=== PATIENT | female | born 1940 | race Caucasian/White ===

== ENCOUNTER → 2018-05-15 | Outpatient (CLI) | payer MEDICARE, BC ==
[~2018-05-15] MED LIST: ASPI-496 PO; ATOR20TA37 PO; BIOT5CAP3 PO; CALC-451 PO; CALC500T93 PO; CHOL200024 PO; DILT120T3 PO; FISH1CAP PO; NAPR220C2 PO
[2018-05-15 10:32] LABS: BASOPHILS # (AUTO) 0.03 x10^3/uL (0-0.1); BASOPHILS % (AUTO) 0 % (0-1); EOSINOPHILS # (AUTO) 0.22 x10^3/uL (0-0.4); EOSINOPHILS % (AUTO) 3 % (1-7); LYMPHOCYTES # (AUTO) 1.85 x10^3/uL (1-3.4); LYMPHOCYTES % (AUTO) 23 % (22-44); MD NO; MEAN CORPUSCULAR HEMOGLOBIN 32.3 pg (27.0-34.8); MEAN CORPUSCULAR HGB CONC 33.7 g/dL (32.4-35.8); MEAN CORPUSCULAR VOLUME 95.6 fL (80-100); MEAN PLATELET VOLUME 9.4 fL (7.4-10.4); MONOCYTES # (AUTO) 0.37 x10^3/uL (0.2-0.8); MONOCYTES % (AUTO) 5 % (2-9); NEUTROPHILS # (AUTO) 5.73 x10^3/uL (1.8-6.8); NEUTROPHILS % (AUTO) 70 % (42-75); PLATELET COUNT 255 x10^3/uL (130-400); RED BLOOD COUNT 4.17 x10^6/uL (3.82-5.3); RED CELL DISTRIBUTION WIDTH 13.2 % (9.6-15.2)
[2018-05-15 10:38] LABS: ANION GAP 4 mmol/L (5-15); CALCIUM 9.1 mg/dL (8.5-10.1); CHLORIDE 108 mmol/L (98-107); CREATININE 0.96 mg/dL (0.55-1.02)
== END | disposition home or self-care (01) ==
LOC: STAR 09:09
PROVIDERS: ATTEND Obstetrics & Gynecology Female Pelvic Medicine and Reconstructive Surgery
DX: Z01.818 Encounter for other preprocedural examination (principal); N81.4 Uterovaginal prolapse, unspecified; N39.3 Stress incontinence (female) (male); Z88.5 Allergy status to narcotic agent; Z88.8 Allergy status to other drugs, medicaments and biological substances; Z88.1 Allergy status to other antibiotic agents
CPT/HCPCS: 36415; 71046; 80048; 85025; 93005

== ENCOUNTER 2018-06-11 10:27 | Observation (INO) | payer MEDICARE, BC ==
[~2018-06-11] VITALS: Ht 162.6 cm; Wt 82.0 kg
[2018-06-11] MEDS ORDERED: LACTATED RINGERS 1,000 ML IV SCH (10:53)
[2018-06-11] MEDS ORDERED: SCOPOLAMINE PATCH, 1.5MG PATCH.TD72 TD ONE (11:00)
[2018-06-11] MEDS ORDERED: ACETAMINOPHEN 500 MG TABLET PO ONE (11:00)
[2018-06-11] MEDS ORDERED: GABAPENTIN 300 MG CAPSULE PO ONE (11:00)
[2018-06-11 11:24] VITALS: BP 152/84
[2018-06-11] MEDS ORDERED: GENTAMICIN 80 MG/2 ML ONE (11:30)
[2018-06-11] MEDS ORDERED: BUPIVACAINE/PF 0.25% ONE (11:58)
[2018-06-11] MEDS ORDERED: VANCOMYCIN 500 MG ONE (11:58)
[2018-06-11] MEDS ORDERED: THROMBIN 20,000 UNIT VIAL TP ONE ×2 (11:58→13:21)
[2018-06-11] MEDS ORDERED: ESTROGENS CONJUGATED VAG CRM 0.625MG/1G, 30GM ONE (11:58)
[2018-06-11] MEDS ORDERED: EPINEPHRINE 1 MG/ML, 1ML ONE (11:58)
[2018-06-11] MEDS ORDERED: hydrALAzine 20 MG/ML, 1ML IV PRN (12:00)
[2018-06-11] MEDS ORDERED: MEPERIDINE/PF 25MG/0.5ML IVPush PRN (12:00)
[2018-06-11] MEDS ORDERED: LABETALOL 5MG/ML, 20ML IV PRN (12:00)
[2018-06-11] MEDS ORDERED: PROCHLORPERAZINE 5 MG/ML, 2ML IV PRN (12:00)
[2018-06-11] MEDS ORDERED: PROMETHAZINE 25 MG/ML, 1ML IV PRN (12:00)
[2018-06-11] MEDS ORDERED: FENTANYL PF 100 MCG/2ML IV PRN (12:00)
[2018-06-11] MEDS ORDERED: OXYcodone 5 MG/5 ML ORAL.SOL UDC PO PRN (12:00)
[2018-06-11] MEDS ORDERED: METOPROLOL 1 MG/ML, 5ML IV PRN (12:00)
[2018-06-11] MEDS ORDERED: FENTANYL PF 100 MCG/2ML ONE (13:01)
[2018-06-11] MEDS ORDERED: ONDANSETRON 2MG/ML, 2ML ONE (13:08)
[2018-06-11] MEDS ORDERED: ROCURONIUM 10MG/ML,5ML ONE (13:08)
[2018-06-11] MEDS ORDERED: CEFAZOLIN 1,000 MG ONE (13:08)
[2018-06-11] MEDS ORDERED: GLYCOPYRROLATE 0.2MG/1ML, 5ML ONE (13:08)
[2018-06-11] MEDS ORDERED: PROPOFOL 10 MG/ML, 20ML ONE (13:08)
[2018-06-11] MEDS ORDERED: SUCCINYLCHOLINE 20 MG/ML, 10ML ONE (13:08)
[2018-06-11] MEDS ORDERED: DEXAMETHASONE 4 MG/ML, 1ML ONE (13:08)
[2018-06-11] MEDS ORDERED: KETOROLAC 30 MG/1 ML ONE (13:08)
[2018-06-11] MEDS ORDERED: NEOSTIGMINE 1 MG/ML, 10ML ONE (13:08)
[2018-06-11] MEDS ORDERED: NEOMY/POLYMYXIN B GU IRR. 1 ML IRRIG ONE (13:21)
[2018-06-11] MEDS ORDERED: BUPIVACAINE/PF-EPI 0.25% 1:200K INFIL ONE (13:21)
[2018-06-11] MEDS ORDERED: NEOMY/POLYMYXIN B GU IRR. 1 ML ONE (13:22)
[2018-06-11] MEDS: LACTATED RINGERS 1,000 ML IV SCH ×2 (15:03→23:03)
[2018-06-11] MEDS ORDERED: OXYcodone 5 MG/5 ML ORAL.SOL UDC ONE (15:16)
[2018-06-11] MEDS ORDERED: PROMETHAZINE 12.5 MG SUPP PR ONE (15:30)
[2018-06-11] MEDS ORDERED: ONDANSETRON 2MG/ML, 2ML IVPush PRN (15:30)
[2018-06-11] MEDS ORDERED: IBUPROFEN 600 MG TABLET PO PRN (15:30)
[2018-06-11] MEDS ORDERED: OXYcodone/APAP 5/325MG TABLET PO PRN (15:30)
[2018-06-11] MEDS ORDERED: METOCLOPRAMIDE 5 MG/ML, 2ML IVPush PRN (22:30)
[2018-06-11] MEDS ORDERED: KETOROLAC 30 MG/1 ML IVPush PRN (22:30)
[2018-06-12 00:57] VITALS: BP 108/50
[2018-06-12 04:00] VITALS: BP 111/48
[2018-06-12] MEDS: LACTATED RINGERS 1,000 ML IV SCH (05:14)
[2018-06-12 08:17] VITALS: BP 106/60
== END 2018-06-12 09:10 | disposition home or self-care (01) ==
LOC: OUT 10:27 → ORIP 19:00 → 4NOR 21:40 → DCLOUNGE 06-12 09:00
PROVIDERS: ADMIT Obstetrics & Gynecology Female Pelvic Medicine and Reconstructive Surgery; ATTEND Obstetrics & Gynecology Female Pelvic Medicine and Reconstructive Surgery
DX: N99.3 Prolapse of vaginal vault after hysterectomy (principal); I48.91 Unspecified atrial fibrillation; N36.42 Intrinsic sphincter deficiency (ISD); N39.3 Stress incontinence (female) (male); Z80.1 Family history of malignant neoplasm of trachea, bronchus and lung
CPT/HCPCS: 51992; 57120; 96374; 96375; C1771; G0378; J0171; J0330; J0690; J1100; J1580; J1885; J2405; J2704; J2710; J2765; J3010; J3490; J7120; J3370